=== PATIENT | female | born 1970 | race Two or more races ===

== ENCOUNTER 2023-12-30 10:25 | Emergency (ER) | payer OTHER ==
[~2023-12-30] VITALS: Ht 162.6 cm; Wt 56.7 kg
[2023-12-30] MEDS ORDERED: TETANUS & DIPHTHERIA TOX,ADULT 0.5 ML VIAL IM STA (10:48)
[2023-12-30] MEDS ORDERED: TETANUS DIPHTHERIA TOX. ADSOR 5 ML VIAL IM ONE (10:56)
== END 2023-12-30 11:45 | disposition home or self-care (01) ==
LOC: ER 10:26
DX: S61.250A Open bite of right index finger without damage to nail, initial encounter (principal); W55.01XA Bitten by cat, initial encounter; Y93.89 Activity, other specified; Y92.488 Other paved roadways as the place of occurrence of the external cause